=== PATIENT | male | born 1955 | race African-American/Black ===

== ENCOUNTER → 2017-06-29 | Outpatient (CLI) | payer OTHER ==
[~2017-06-29] MED LIST: IOHEXOL 180 MG/ML 10 ML VIAL. ONE; methylPREDNISolone ACETATE 40 MG/ML VIAL. ONE; methylPREDNISolone ACETATE 80 MG/ML VIAL. ONE
--- NOTE | 2017-06-29 23:34 | PAIN ---
DATE OF SERVICE: 06/29/2017 INITIAL CONSULTATION FOR PAIN CLINIC CHIEF COMPLAINT: Low back pain with left greater than right lower extremity pain. HISTORY OF PRESENT ILLNESS: This is a 61-year-old male who presents with history of pain in the low back, bilateral lower extremities, left greater than right for about 2-3 years. The patient reports this started in 1977 when he had an injury doing some Olympic games dislocated left knee cap with high jumping and had pain in the back at the same time. The patient reports he did fairly well after that with pain over the years but over the past 2-3 years, it has been much worse, low back radiating to the left lower extremity and also in the lateral aspect of the gluteus, posterior gluteus, posterior thigh, lateral thigh, medial thigh and medial lower leg with numbness and the inside of the lower leg to the ankle on the left side along with some pain across the low back and the right lateral hip and gluteus on the right side. The patient reports it is better with heat, with sitting or changing positions; waking him from sleep about twice a night; however, he is usually better with lying down and when he lays on his left side, it does awaken him from sleep. The patient reports the pain is constant, sharp, stabbing, throbbing, shooting and has numbness and radiation, aching and burning qualities into the lower extremities again, worse on the left side. The patient reports it does not affect his bowel or bladder control, does affect his ability to walk and he uses a brace or a cane, which he has with him today most times. The patient has had epidural injections in the past at an outside facility as well as physical therapies in the past and is currently doing some stretching exercises on his own. No formal physical therapy within the last 6 months. The patient reports a disability rate from 0-10, 10 being the worst, is a 5 with family and home responsibilities and social activity and self care, 7 with recreation and sexual behavior, 8 with occupation and 5 with self care and 0 with life support activities. The patient reports no loss of motor function, but significant fatigability into the left lower extremity with activity, walking more than about 10-15 minutes. If he stops to rest, this gets better and he can reset the process and go on again. PAST MEDICAL HISTORY: Significant for hypertension, bronchitis, asthma, glaucoma, thrombocytopenia, arthritis, depression, anxiety and osteoarthritis. PAST SURGICAL HISTORY: Previous surgeries include a left knee scope. CURRENT MEDICATIONS: Include daily baby aspirin, Zyrtec, ibuprofen, methocarbamol, amlodipine, Klor-Con, Flovent, alprazolam and gabapentin. ALLERGIES: The patient is allergic to PENICILLIN. FAMILY HISTORY: Significant for no major medical conditions or issues that he is aware of. SOCIAL HISTORY: The patient drinks about a pint of alcohol a week and drinks it throughout the week. Also, smokes marijuana once a week on average as well and smokes cigarettes for 20+ years, nonmenthol. 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 REVIEW OF SYSTEMS: The patient's review of systems is positive for those items mentioned in history of present illness. All systems reviewed and otherwise negative. It is complete, full and well documented on the patient's chart. PHYSICAL EXAMINATION: VITAL SIGNS: Today the patient's blood pressure is 122/82, pulse 71, respirations 16, temperature is 98.3 degrees Fahrenheit, height is 5 feet 9 inches and weight 163 pounds. GENERAL: The patient is awake, alert, oriented, appropriate and very pleasant demeanor. HEENT: Head shows normocephalic and atraumatic. Extraocular movements are intact, symmetrical. Oral cavity: Mucous membranes moist and pink. Dentition is intact. NECK: Shows anterior throat supple without palpable lymphadenopathy noted. Swallow reflex symmetrical. CHEST: Shows normal with inspection. Breath sounds are clear to auscultation bilaterally. HEART: Shows S1 and S2 clear. No murmurs auscultated. ABDOMEN: Soft, nontender and nondistended. No palpable organomegaly is noted. No rebound or guarding demonstrated. BACK: Shows spine grossly in the midline. No previous bruises, lesions, rashes or scars are noted. Normal appearing cervical lordotic curvature, thoracic kyphotic curvature and lumbar lordotic curvature. The patient's skin shows warm and dry, good turgor. No edema and no rashes, bruises or scars. Lumbar paraspinous muscle shows symmetry on inspection. With palpation shows some moderate tenderness along the lower lumbar distribution, slightly more on the left than the right but only slightly. The patient shows good rotational motion of lumbar spine, both laterally as well as extension and flexion without difficulty. No tenderness over the sacrum, sacroiliac regions over the spinous processes with palpation. LOWER EXTREMITIES: Show deep tendon reflexes at 2+ in the patellar, 1+ tendo-calcaneal tendons. Motor exam is strong with 5/5 dorsiflexion, extension, quadriceps and hamstring flexion equal and symmetrical. Peripheral pulses are 1+ posterior tibial and dorsalis pedis pulses with no peripheral edema is noted. No clubbing and no cyanosis. Straight leg raising noted to be positive on the left at about 40-45 degrees. Right side is negative. Gaenslen's and Lukas's maneuvers are negative bilaterally. The patient is able to stand, stand on his toes without significant difficulty or loss of balance, walks with a normal-appearing gait, does not appear to favor the right or left lower extremity, does have a cane with him, however, which he is using in his right hand. IMPRESSION: 1. This is a 61-year-old male with a 2-3 year history of increasing pain, low back, bilateral lower extremities, worse on the left than the right in a radicular fashion. 2. MRI scan of lumbar spine showing advanced degenerative disk disease, degenerative facet arthrosis at L4-L5 resulting in bilateral neural foraminal stenosis and nerve root impingement. 3. History of arthritis. 4. Hypertension. PLAN: Options were discussed with the patient including conservative medical management, physical therapy, interventional techniques and he would like to pursue interventional techniques. We discussed a lumbar epidural steroid injection using description as well as anatomic models to describe the procedure. Risks were then discussed including, but limited to bleeding, infection, possibility of epidural hematoma and subsequent neurological compromise, dural puncture, headaches, spinal cord and/or nerve damage, side effects of steroid medication and poor results regarding pain control. The patient understands and wished to proceed. The patient to return to clinic in approximately 2 weeks for followup, was counseled to return appointment, activity level and side effects to be aware of. DIAGNOSIS: Lumbar radiculopathy with lumbar spinal stenosis and lumbar degenerative disk disease. PROCEDURE: Lumbar epidural steroid injection in translaminar approach at the L4-L5 level using C-arm fluoroscopic guidance under sterile prep and drape using local anesthetic. MEDICATION INJECTED: A total of 120 mg Depo-Medrol plus 10 mL of preservative-free normal saline and 2 mL of Isovue for contrast. CONDITION AT DISCHARGE: Stable. The patient tolerated procedure well, had no complications. AMEE ARGUETA MD DR: VELMA/anna JOB#: [id number] / [id number]
== END | disposition home or self-care (01) ==
LOC: PNCL 08:37
PROVIDERS: ATTEND Anesthesiology
DX: M51.16 Intervertebral disc disorders with radiculopathy, lumbar region (principal); M48.061 Spinal stenosis, lumbar region without neurogenic claudication; I10 Essential (primary) hypertension; M19.90 Unspecified osteoarthritis, unspecified site; H40.9 Unspecified glaucoma; F41.9 Anxiety disorder, unspecified; F32.9 Major depressive disorder, single episode, unspecified; Z88.0 Allergy status to penicillin
CPT/HCPCS: 62323; J1030; J1040

== ENCOUNTER → 2020-06-08 | Outpatient (CLI) | payer OTHER ==
[~2020-06-08] MED LIST changes: +ALPR0.5T6 PO; +AMLO-187 PO; +ASPI-630 PO; +GABA600T7 PO; +HYDR-2761 PO; +IBUP-1060 PO; -IOHEXOL 180 MG/ML 10 ML VIAL. ONE; +LORA10TA68 PO; +MULT-121 PO; -methylPREDNISolone ACETATE 40 MG/ML VIAL. ONE; -methylPREDNISolone ACETATE 80 MG/ML VIAL. ONE
[2020-06-08 09:31] LABS: BASO % 1 % (0-3); EOS # 0.1 x10^3/uL (0.0-0.7); EOS % 2 % (0-3); HEMATOCRIT 41.6 % (39.0-53.0); HEMOGLOBIN 14.1 g/dL (13.0-17.5); LYMPH # 2.1 x10^3/uL (1.0-4.8); LYMPH % 31 % (24-48); MEAN CORPUSCULAR HEMOGLOBIN 31 pg (25-35); MEAN CORPUSCULAR HGB CONC 34 g/dL (31-37); MEAN CORPUSCULAR VOLUME 92 fL (79-100); MONO # 0.5 x10^3/uL (0.0-1.1); MONO % 7 % (0-9); NEUT # 4.2 x10^3/uL (1.8-7.7); NEUT % 60 % (31-73); PLATELET COUNT 165 x10^3/uL (140-400); RED BLOOD COUNT 4.51 x10^6/uL (4.30-5.70); RED CELL DISTRIBUTION WIDTH 13.9 % (11.5-14.5); WHITE BLOOD COUNT 6.9 x10^3/uL (4.0-11.0)
[2020-06-08 09:42] LABS: PROTHROMBIN TIME PATIENT 12.7 SEC (11.7-14.0)
[2020-06-08 09:53] LABS: ALBUMIN 3.7 g/dL (3.4-5.0); C-REACTIVE PROTEIN 2.6 mg/L (0-3.3); CALCIUM 8.8 mg/dL (8.5-10.1); POTASSIUM 3.6 mmol/L (3.5-5.1)
[2020-06-09 00:10] LABS: HEMOGLOBIN A1C 5.5 % (4.8-5.6)
== END ==
LOC: SURGPAT 12:41
PROVIDERS: ATTEND Orthopaedic Surgery
DX: Z01.812 Encounter for preprocedural laboratory examination (principal); M16.0 Bilateral primary osteoarthritis of hip; Z96.612 Presence of left artificial shoulder joint
CPT/HCPCS: 36415; 80048; 82040; 82306; 83036; 85025; 85610; 85730; 86140; 87641

== ENCOUNTER → 2020-06-12 | Outpatient (CLI) | payer OTHER ==
[2020-06-11 12:33] VITALS: BP 115/81
== END ==
LOC: LAB 13:31
PROVIDERS: ATTEND Orthopaedic Surgery
DX: Z01.812 Encounter for preprocedural laboratory examination (principal); Z20.828 Contact with and (suspected) exposure to other viral communicable diseases
CPT/HCPCS: U0003

== ENCOUNTER 2020-06-16 08:46 | Inpatient (IN) | payer OTHER ==
[~2020-06-16] VITALS: Ht 175.3 cm; Wt 71.7 kg
[2020-06-16] VITALS (11 sets, daily range): BP systolic 105–143; BP diastolic 60–83
[~2020-06-16 08:46] MED LIST changes: +ACETAMINOPHEN 500 MG TABLET PO PRN; +GABAPENTIN 300 MG CAPSULE. PO PRN; +MELOXICAM 7.5 MG TABLET PO PRN; +MORPHINE SULFATE 5 MG, KETOROLAC 30MG VIAL 30 MG, ROPIVacaine 0.5% PF 60 ML, EPINEPHrin... INT ART ONE; +TRANEXAMIC ACID 1,000 MG in IV NS 50ML -- 1ST BAG INJ ONE; +TRANEXAMIC ACID 1,000 MG in IV NS 50ML -- 2ND BAG INJ ONE; +ceFAZolin SODIUM IV Push 1 GM VIAL. IVP PRN
[2020-06-16] MEDS ORDERED: PROPOFOL 10 MG/ML (20ML) VIAL. IV ONE (09:46)
[2020-06-16] MEDS ORDERED: LIDOCAINE 2% PF 5 ML VIAL. ONE (09:46)
[2020-06-16] MEDS ORDERED: ROCURONIUM 50 MG/5 ML VIAL. ONE (09:46)
[2020-06-16] MEDS ORDERED: fentaNYL PF VIAL 100 MCG/2 ML VIAL ONE ×2 (09:47→16:32)
[2020-06-16] MEDS: IV RINGERS,LACTATED 1000ML 1,000 ML IV SCH ×2 (09:50→23:20)
[2020-06-16 10:09] LABS: PROTHROMBIN TIME PATIENT 12.4 SEC (11.7-14.0)
[2020-06-16] MEDS ORDERED: IV RINGERS,LACTATED 1000ML 1,000 ML IV SCH (10:45)
[2020-06-16] MEDS ORDERED: MORPHINE SULFATE 2 MG/ML VIAL. IV PRN (10:45)
[2020-06-16] MEDS ORDERED: fentaNYL PF VIAL 100 MCG/2 ML VIAL IV PRN (10:45)
[2020-06-16] MEDS ORDERED: HYDROmorphone 2 MG/ML VIAL IV PRN (10:45)
[2020-06-16] MEDS ORDERED: LIDOCAINE 1% PF 2 ML VIAL. ID PRN (10:45)
[2020-06-16] MEDS ORDERED: PROCHLORPERAZINE 10 MG/2 ML VIAL. IV PRN (10:45)
[2020-06-16] MEDS ORDERED: ONDANSETRON PF 4 MG/2 ML VIAL. IV PRN (10:45)
--- NOTE | 2020-06-16 12:15 | HP ---
ADMIT DATE: 06/16/2020 PREOPERATIVE HISTORY AND PHYSICAL CHIEF COMPLAINT: Bilateral hip pain, left worse than right. HISTORY OF PRESENT ILLNESS: The patient has had severe worsening bilateral hip pain for several years with previous injections and nonoperative treatment provided only partial incomplete relief, which has been inadequate as his pain has gotten worse and worse with ambulation and transfers. He has recently been walking with a walker because of the severe pain. PAST MEDICAL HISTORY: Hypertension, joint pain and neuropathy. PAST SURGICAL HISTORY: Surgical history of his left knee back in 1977. Apparently a ligament reconstruction for a dislocated knee. FAMILY HISTORY: Mom is alive. Father is . SOCIAL HISTORY: He was a previous smoker, states that he has quit recently after a 32-year history of smoking. He has about 1 beer nightly as far as alcohol. He is retired from the . Denies any drug use. 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 MEDICATIONS: List is reviewed. ALLERGIES: He has no known drug allergies. REVIEW OF SYSTEMS: Negative for any recent febrile illness, chest pain, shortness of breath or other constitutional symptoms. PHYSICAL EXAMINATION: GENERAL: Height is 5 feet 9 inches, weight 159 pounds, BMI 23.48. VITAL SIGNS: Per admission sheet. HEENT: Atraumatic, normocephalic. HEART: Regular rate and rhythm. LUNGS: Clear to auscultation bilaterally. ABDOMEN: Benign. EXTREMITIES: Examination of both hips reveals decreased range of motion, but extreme pain on the left hip, more so than the right with any extremes of his already limited range of motion that are attempted. He has normal motion of bilateral knees and ankles with intact motor function, distal pulses, sensation, reflexes, skin in both lower extremities throughout. IMAGING: X-rays show severe osteoarthritis of both hips with loss of joint space bilaterally, left is worse than the right. ASSESSMENT: Primary osteoarthritis of both hips, left hip pain worse than right. TREATMENT PLAN: I had previously discussed with him risks, benefits, postoperative course of total hip arthroplasty including the possibility of infection, nerve or blood vessel damage, premature wear or loosening, instability, medical or other anesthetic complications and among others. All his questions were answered. He wishes to proceed with surgical evaluation and treatment, which will include [facility] observation to follow. REBEKA GU MD DR: ALEXANDRA/anna JOB#: [id number] / [id number]
[2020-06-16] MEDS ORDERED: DESFLURANE 61 TO 120 MINUTES IH ONE (14:15)
[2020-06-16] MEDS ORDERED: DEXAMETHASONE SOD PHOS 4 MG/ML VIAL ONE (14:15)
[2020-06-16] MEDS ORDERED: VANCOMYCIN 1 GM VIAL. CEMENT ONE (14:15)
[2020-06-16] MEDS ORDERED: ONDANSETRON PF 4 MG/2 ML VIAL. ONE (14:15)
[2020-06-16] MEDS ORDERED: NEOSTIGMINE METHYLSULFATE 5 MG/5 ML SYRINGE. ONE (15:11)
[2020-06-16] MEDS ORDERED: GLYCOPYRROLATE 1 MG/5 ML VIAL. ONE (15:11)
[2020-06-16] MEDS ORDERED: KETOROLAC 30 MG/ML VIAL. ONE (16:26)
[2020-06-16] MEDS ORDERED: MORPHINE SULFATE 2 MG/ML VIAL. ONE (16:32)
[2020-06-16] MEDS ORDERED: PROCHLORPERAZINE 10 MG/2 ML VIAL. ONE (16:32)
[2020-06-16] MEDS ORDERED: 0.9 % SODIUM CHLORIDE 10 ML DISP.SYRIN. IV PRN (16:45)
[2020-06-16] MEDS ORDERED: CALCIUM CARBONATE 500 MG TAB.CHEW PO PRN (16:45)
[2020-06-16] MEDS ORDERED: ZOLPIDEM 5 MG TABLET. PO PRN (16:45)
[2020-06-16] MEDS ORDERED: IV NORMAL SALINE 1000ML BAG 1,000 ML IV SCH (16:45)
[2020-06-16] MEDS ORDERED: PROCHLORPERAZINE 5 MG TABLET. PO PRN (16:45)
[2020-06-16] MEDS ORDERED: DEXTROSE 50% 25 GM / 50ML DISP.SYRIN. IV PRN (16:45)
[2020-06-16] MEDS ORDERED: fentaNYL PF VIAL 100 MCG/2 ML VIAL IVP PRN (16:45)
[2020-06-16] MEDS ORDERED: MORPHINE SULFATE 2 MG/ML VIAL. IVP PRN (16:45)
[2020-06-16] MEDS ORDERED: diphenhydrAMINE 50 MG/ML VIAL IVP PRN (16:45)
[2020-06-16] MEDS: fentaNYL PF VIAL 100 MCG/2 ML VIAL IV PRN ×2 (16:47→16:59)
--- NOTE | 2020-06-16 17:45 | NUR ---
Pharmacy Warfarin Dosing Note S:Pharmacy consulted to assist with anticoagulation therapy started 06/16/20 with target INR: 1.6 - 2.5 O:LILY LANDON is a 64 year old M with [facility] LABS: Last INR: 1.0 Last HGB: Last HCT: Last PLT: Last dose of given on at Previous Regimen: Vitamin K given: N Drug Interaction Changes: Ongoing Drug Interactions: A:INR of 1.0 is below desired range. Target range for this patient is: 1.6 - 2.5 P: Warfarin dose: 5 mg Today at 1800. Bridge Therapy: None Next INR due tomorrow. Pharmacy anticoagulation service will continue to follow. Ti Jacome [facility], 06/16/20 [id number]
--- NOTE | 2020-06-16 17:55 | NUR ---
Arrived to unit by bed from PACU. Alert and oriented x's 4. No c/o at this time. Left anterior hip dressing is d/i with ice pack. IVF's intact and infusing. VS stable. Oriented room and control. Side rails up x's 2 with call light in reach. Dinner tray ordered. Cont. monitor.
[2020-06-16] MEDS ORDERED: WARFARIN 5 MG TABLET. PO ONE (18:00)
[2020-06-16] MEDS: FERROUS SULFATE 325 MG TABLET. PO SCH (19:52)
[2020-06-16] MEDS: oxyCODONE IR 5 MG TABLET PO PRN (19:52)
[2020-06-16] MEDS: ONDANSETRON PF 4 MG/2 ML VIAL. IVP SCH ×2 (19:52→23:39)
[2020-06-16] MEDS: ONDANSETRON ODT 4 MG TAB.RAPDIS. PO SCH ×2 (19:52→23:39)
[2020-06-16] MEDS: ceFAZolin SODIUM IV Push 1 GM VIAL. IVP SCH (19:53)
--- NOTE | 2020-06-16 20:25 | PDOC4 ---
Operative Note Operative Note Date of surgery: 06/16/2020 Preoperative diagnosis: Degenerative joint disease left hip Postoperative diagnosis: Same Operative procedure: Left total hip arthroplasty with anterior approach Surgeon Zane Anesthesia: General Estimated blood loss: 300 cc Complications: None Drains: None Operative indications: Please see my orthopedic clinic note and dictated history and physical for detailed operative indications and note that we covered risks benefits postoperative course of the procedure. All his questions were answered and he wishes to proceed with surgical evaluation and treatment having given informed consent Operative text: Patient was identified procedure verified patient placed in the supine position on the Sanford fracture table after adequate amounts of general anesthesia were administered. All bony prominences were well-padded and left hip was prepped and draped in the standard sterile fashion. After timeout was performed patient procedure identified and verified an incision was made just distal to the anterior superior iliac spine running along the tensor fascia wendy for a distance of about 4 inches. Fascia was incised tensor fascia wendy was taken laterally and circumflex vessels were located and coagulated and the anterior capsule was exposed with the rectus femoris gently retracted medially along with the underlying fascia that was dissected free. Capsule was split in a T-shaped incision and superior aspect of the capsule was excised and further superior release was carried out with the hip in external rotation. Hip was returned to 40 degrees external rotation and a napkin ring cut was made with an Avenir Dagn broach for reference napkin ring was removed and femoral head was removed and sized. Reaming was carried out from a size 49 to a size 55 with a size 56 cluster hole cup placed in proper version and alignment under fluoroscopic guidance and achieved a very solid scratch fit and therefore no screw fixation was applied. A 36 mm standard vitamin E liner was impacted into place. Femur was brought into maximum external rotation extension and adduction and release was carried out at the 11 o'clock position to free up the femur and retractors were placed medially and above the greater trochanter for maximum femoral exposure box osteotome was used along with the rattail rasp and successive size broaching up to a size 5 which provided excellent stability and fit within the canal. Calcar reaming was carried out and trial fitting with a +0 36 mm head to reproduce leg length and offset appropriately. This was verified under fluoroscopic guidance. Trial components were removed and a size 5 standard offset collared Avenir stem was impacted into place with a +0 ceramic 36 mm head. Excellent stability and range of motion were noted and leg length reproduced according to measurements from the contralateral side. Thorough irrigation carried out with dilute Betadine solution and then washed further with normal saline solution and pulse lavage. Intra-articular mixture was injected subperiosteally throughout the joint capsule and subcutaneous areas. Fascia was closed with #1 PDS strata fix suture in a running fashion subcutaneous closure with buried Vicryl skin closure with subcuticular Monocryl and a sam dressing was applied. Patient was returned to recovery room in stable condition having tolerated the procedure well. REBEKA GU MD Jun 16, 2020 20:25
[2020-06-17 03:00] VITALS: BP 109/64
[2020-06-17] MEDS: ceFAZolin SODIUM IV Push 1 GM VIAL. IVP SCH ×2 (03:38→08:37)
[2020-06-17] MEDS: oxyCODONE IR 5 MG TABLET PO PRN ×4 (03:38→20:49)
[2020-06-17] MEDS ORDERED: MAGNESIUM HYDROXIDE 2,400 MG/30 ML ORAL.SUSP. PO PRN (06:00)
[2020-06-17] MEDS: traMADol 50 MG TABLET PO SCH ×4 (06:15→23:21)
[2020-06-17] MEDS: GABAPENTIN 100 MG CAPSULE. PO SCH ×4 (06:15→23:20)
[2020-06-17] MEDS: ONDANSETRON ODT 4 MG TAB.RAPDIS. PO SCH ×2 (06:15→12:00)
[2020-06-17] MEDS: ONDANSETRON PF 4 MG/2 ML VIAL. IVP SCH ×2 (06:15→12:00)
[2020-06-17 06:53] VITALS: BP 117/72
[2020-06-17 08:35] VITALS: BP 114/65
[2020-06-17] MEDS: MULTIVITAMIN with MINERAL TABLET. PO SCH (08:37)
[2020-06-17] MEDS: ACETAMINOPHEN 500 MG TABLET PO SCH ×3 (08:37→20:50)
[2020-06-17] MEDS: SENNOSIDES/DOCUSATE 8.6/50MG TABLET. PO SCH (08:37)
[2020-06-17] MEDS: amLODIPine BESYLATE 10 MG TABLET PO SCH (08:37)
[2020-06-17] MEDS: FERROUS SULFATE 325 MG TABLET. PO SCH ×2 (08:37→16:21)
[2020-06-17] MEDS ORDERED: MULTIVITAMIN PO SCH (09:00)
[2020-06-17 09:15] LABS: PROTHROMBIN TIME PATIENT 14.2 SEC (11.7-14.0)
[2020-06-17 10:59] LABS: HEMATOCRIT 28.4 % (39.0-53.0); HEMOGLOBIN 9.7 g/dL (13.0-17.5)
[2020-06-17] MEDS ORDERED: ONDANSETRON PF 4 MG/2 ML VIAL. IVP PRN (12:00)
[2020-06-17] MEDS ORDERED: ONDANSETRON ODT 4 MG TAB.RAPDIS. PO PRN (12:00)
--- NOTE | 2020-06-17 15:14 | NUR ---
Pharmacy Warfarin Dosing Note S:Pharmacy consulted to assist with anticoagulation therapy started 06/16/20 with target INR: 1.6 - 2.5 O:LILY LANDON is a 64 year old M with [facility] LABS: Last INR: 1.1 Last HGB: 9.7 Last HCT: 28.4 Last PLT: Last dose of 5 mg given on 06/16/20 at 1952 Previous Regimen: Vitamin K given: N Drug Interaction Changes: Ongoing Drug Interactions: A:INR of 1.1 is below desired range. Target range for this patient is: 1.6 - 2.5 P: Warfarin dose: 5 mg Today at 1600 Bridge Therapy: None Next INR due TOMORROW Pharmacy anticoagulation service will continue to follow. MARK [facility], 06/17/20 [id number]
[2020-06-17] MEDS ORDERED: BISACODYL 10 MG SUPP.RECT. PR PRN (16:00)
[2020-06-17] MEDS ORDERED: WARFARIN 5 MG TABLET. PO ONE (16:00)
[2020-06-17 18:49] VITALS: BP 130/63
--- NOTE | 2020-06-17 20:07 | PDOC ---
PROGRESS NOTES Date of Service DATE: 06/17/20 TIME: 20:06 Subjective Subjective Problems overnight: Some soreness in the muscular area of the hip but joint feels better Objective Vital Signs Vital Signs Date Time Temp Pulse Resp B/P (MAP) Pulse Ox O2 Delivery O2 Flow Rate FiO2 06/17/20 18:49 98.2 57 18 130/63 (85) 95 Room Air 98.2 06/16/20 17:14 10 Physical Exam Dressing clean dry intact leg lengths equal distal neurovascular status intact Labs Laboratory Tests Test 06/16/20 09:20 06/17/20 08:20 06/17/20 09:20 Prothrombin Time 12.4 SEC (11.7-14.0) 14.2 SEC (11.7-14.0) Prothromb Time International Ratio 1.0 (0.8-1.1) 1.1 (0.8-1.1) Activated Partial Thromboplast Time 35 SEC (24-38) Hemoglobin 9.7 g/dL (13.0-17.5) Hematocrit 28.4 % (39.0-53.0) Mean Corpuscular Hemoglobin Concent 34 g/dL (31-37) Laboratory Tests Test 06/17/20 08:20 06/17/20 09:20 Prothrombin Time 14.2 SEC (11.7-14.0) Prothromb Time International Ratio 1.1 (0.8-1.1) Hemoglobin 9.7 g/dL (13.0-17.5) Hematocrit 28.4 % (39.0-53.0) Mean Corpuscular Hemoglobin Concent 34 g/dL (31-37) Imaging Intra-Op x-rays show excellent positioning of a total hip arthroplasty Assessment Assessment POD#1 total hip arthroplasty Plan Plan of Care Coumadin anticoagulation, mobilize weightbearing as tolerated with physical therapy Justicifation of Admission Dx: Justifications for Admission: Justification of Admission Dx: N/A REBEKA GU MD Jun 17, 2020 20:07
[2020-06-18] MEDS: ACETAMINOPHEN 500 MG TABLET PO SCH ×4 (03:00→20:26)
[2020-06-18] MEDS: oxyCODONE IR 5 MG TABLET PO PRN (04:55)
[2020-06-18] MEDS: GABAPENTIN 100 MG CAPSULE. PO SCH ×3 (06:12→20:26)
[2020-06-18] MEDS: traMADol 50 MG TABLET PO SCH ×4 (06:13→22:54)
[2020-06-18 06:15] VITALS: BP 121/66
[2020-06-18] MEDS ORDERED: CETIRIZINE HCL 10 MG TABLET. PO PRN (07:15)
[2020-06-18] MEDS: FERROUS SULFATE 325 MG TABLET. PO SCH ×2 (08:04→17:12)
[2020-06-18] MEDS: MULTIVITAMIN with MINERAL TABLET. PO SCH (08:05)
[2020-06-18] MEDS: SENNOSIDES/DOCUSATE 8.6/50MG TABLET. PO SCH (08:05)
--- NOTE | 2020-06-18 08:57 | PDOC ---
PROGRESS NOTES Date of Service DATE: 06/18/20 TIME: 08:56 Subjective Subjective Problems overnight: Left hip is very sore today he thinks after physical therapy and some exercises on his own last evening Objective Vital Signs Vital Signs Date Time Temp Pulse Resp B/P (MAP) Pulse Ox O2 Delivery O2 Flow Rate FiO2 06/18/20 07:16 Room Air 06/18/20 06:15 99.9 80 18 121/66 (84) 93 99.9 06/16/20 17:14 10 Physical Exam Leg lengths equal distal neurovascular status intact he has good stability a lot of soreness over the left hip musculature some swelling and bruising as expected Labs Laboratory Tests Test 06/16/20 09:20 06/17/20 08:20 06/17/20 09:20 Prothrombin Time 12.4 SEC (11.7-14.0) 14.2 SEC (11.7-14.0) Prothromb Time International Ratio 1.0 (0.8-1.1) 1.1 (0.8-1.1) Activated Partial Thromboplast Time 35 SEC (24-38) Hemoglobin 9.7 g/dL (13.0-17.5) Hematocrit 28.4 % (39.0-53.0) Mean Corpuscular Hemoglobin Concent 34 g/dL (31-37) Laboratory Tests Test 06/17/20 09:20 Hemoglobin 9.7 g/dL (13.0-17.5) Hematocrit 28.4 % (39.0-53.0) Mean Corpuscular Hemoglobin Concent 34 g/dL (31-37) Assessment Assessment POD#2 left total hip arthroplasty Plan Plan of Care Continue mobilize with physical therapy, Coumadin anticoagulation Adjust pain medications as necessary Justicifation of Admission Dx: Justifications for Admission: Justification of Admission Dx: Yes (A lot of left hip soreness adjusting medications to relieve) REBEKA GU MD Jun 18, 2020 08:57
[2020-06-18] MEDS: LIDOCAINE (700MG/PATCH) PATCH. TD SCH (10:09)
--- NOTE | 2020-06-18 10:15 | NUR ---
Complaining of left hip pain towards back. Lidoderm patch placed per request. "Don't like to take a lot pain pills. Don't want to get hooked on them." Cont. monitor.
[2020-06-18 11:09] LABS: PROTHROMBIN TIME PATIENT 16.4 SEC (11.7-14.0)
[2020-06-18 11:20] VITALS: BP 99/62
--- NOTE | 2020-06-18 11:48 | NUR ---
Pharmacy Warfarin Dosing Note S: Pharmacy consulted to assist with anticoagulation therapy started 06/16/20 O: LILY LANDON is a 64 year old M with [facility] LABS: Last INR: 1.4 Last HGB: 9.7 Last HCT: 28.4 Last PLT: Last dose of 5 mg given on 06/17/20 at 1621 Vitamin K given: N A:INR of 1.4 is below desired range. Target range for this patient is: 1.6 - 2.5 P: Warfarin dose: 4 mg Today at 1600 Bridge Therapy: None Next INR due tomorrow Pharmacy anticoagulation service will continue to follow. Doreen River RPH, 06/18/20 [id number]
[2020-06-18] MEDS: amLODIPine BESYLATE 10 MG TABLET PO SCH (12:36)
[2020-06-18 13:30] LABS: HEMATOCRIT 29.8 % (39.0-53.0)
--- NOTE | 2020-06-18 14:30 | NUR ---
Stated that the pain is better controlled this afternoon. Encourage to use ice pack and elevated legs while at rest. Cont. monitor.
[2020-06-18] MEDS ORDERED: WARFARIN 4 MG TABLET. PO ONE (16:00)
[2020-06-18 17:57] VITALS: BP 108/62
[2020-06-19] MEDS: ACETAMINOPHEN 500 MG TABLET PO SCH ×3 (03:00→15:00)
[2020-06-19] MEDS: GABAPENTIN 100 MG CAPSULE. PO SCH ×2 (05:39→12:30)
[2020-06-19] MEDS: traMADol 50 MG TABLET PO SCH ×2 (05:39→12:31)
[2020-06-19 06:16] VITALS: BP 138/84
[2020-06-19] MEDS ORDERED: OXYC5CAP PO (07:38)
[2020-06-19] MEDS ORDERED: WARF3TAB50 PO (07:38)
[2020-06-19 07:39] LABS: HEMATOCRIT 26.9 % (39.0-53.0); HEMOGLOBIN 9.3 g/dL (13.0-17.5)
--- NOTE | 2020-06-19 07:40 | SNU/HH DC ---
DISCHARGE WITH HOME HEALTH DISCHARGE INFORMATION: Condition on Discharge: Stable CODE STATUS: Code Status: Full HOME HEALTH: Face to Face: I certify this patient is under my care and that I, or a nurse practitioner or physician's assignment desk assistant working with me, had a face to face encounter that meets the physician face to face encounter requirements with this patient on [06/19/20]. Medical Complications: S/P Joint Replacement Custodial For: Assess/Skilled Observatio RN For Eval/Treatment: Yes Physical Therapy For: Evalulation/Treatment Pt Meets Homebound Status: Limited distance walking POST DISCHARGE ORDERS: Activity Instructions for Disc: Progressive ambulation Weight Bearing Status after Di: As tolerated Bathing Instructions: Shower-keep dressing dry DIET AFTER DISCHARGE: Regular Wound/Incision Care: Ice to area for comfort, Do not change dressing (Call if dressing is saturated, if intact and sealed may shower) FOLLOW-UP: Follow up with: Dr. Degroot 2 weeks postoperatively, call [phone] for follow-up appointment Warfarin Follow UP: Warfarin dosage and testing per [facility] anticoagulation clinic CERTIFICATION STATEMENT: Certification Statement: Certification Statement: Based on the above finding, I certify that this patient is confined to the home and needs intermittent senior living care, physical therapy and/or speech therapy, or continues to need occupational therapy.~ This patient is under my care, and I have initiated the establishment of the plan of care.~ This patient will be followed by myself or a community physician who will periodically review the plan of care. Home Meds Reported Medications Aspirin (ASPIRIN) 81 Mg Tab.chew, 81 MG PO DAILY for blood thinner, TAB.CHEW 06/08/20 Multivitamin (MULTIPLE VITAMINS) 1 Each Tablet, 1 EACH PO DAILY for supplement, TAB 06/08/20 Loratadine (CLARITIN) 10 Mg Tablet, 10 MG PO PRN DAILY PRN for ALLERGIES, TAB 06/08/20 Amlodipine Besylate (AMLODIPINE BESYLATE) 10 Mg Tablet, 10 MG PO DAILY for bp control, TAB 06/08/20 Alprazolam (ALPRAZOLAM) 0.5 Mg Tablet, 0.5 MG PO PRN Q6HRS PRN for ANXIETY / AGITATION, TAB 0 Refills 06/08/20 Ibuprofen (IBUPROFEN) 800 Mg Tablet, 800 MG PO PRN Q6HRS PRN for INFLAMMATION, TAB 06/08/20 Gabapentin (GABAPENTIN) 600 Mg Tablet, 300 MG PO PRN DAILY PRN for PAIN, TAB 06/08/20 Hydrocodone Bit/Acetaminophen (HYDROCODONE-APAP 5-325 ) 1 Tab Tablet, 1 TAB PO PRN Q6HRS PRN for PAIN, TAB 0 Refills 06/08/20 REBEKA DEGROOT MD Jun 19, 2020 07:40
[2020-06-19 07:53] LABS: PROTHROMBIN TIME PATIENT 17.1 SEC (11.7-14.0)
[2020-06-19 08:23] VITALS: BP 118/67
[2020-06-19] MEDS: SENNOSIDES/DOCUSATE 8.6/50MG TABLET. PO SCH (08:25)
[2020-06-19] MEDS: FERROUS SULFATE 325 MG TABLET. PO SCH (08:25)
[2020-06-19] MEDS: oxyCODONE IR 5 MG TABLET PO PRN ×2 (08:25→14:49)
[2020-06-19] MEDS: MULTIVITAMIN with MINERAL TABLET. PO SCH (08:25)
[2020-06-19 08:26] VITALS: BP 118/67
[2020-06-19] MEDS: amLODIPine BESYLATE 10 MG TABLET PO SCH (08:26)
[2020-06-19] MEDS: LIDOCAINE (700MG/PATCH) PATCH. TD SCH (08:27)
[2020-06-19] MEDS ORDERED: WARFARIN 5 MG TABLET. PO ONE (14:00)
--- NOTE | 2020-06-19 15:11 | NUR ---
Discharge instructions given with follow up to Dr. Degroot as scheduled, [facility] scheduled to start 06/20/20 given telephone # to call in case, premedicated for ride home & given todays dose of Coumadin, belongings packed up, see instruction sheet for details, awaiting transportation home
--- NOTE | 2020-06-19 15:58 | NUR ---
Discharged to home per w/c belongings taken with him
--- NOTE | 2020-06-22 19:11 | PATHOLOGY ---
[facility] Accession Number: [id number] . 01 Material submitted: . femur - LEFT FEMORAL HEAD. Modifiers: left . 01 Clinical history: . HIP PAIN LEFT HIP ARTHROPLAST ANTERIOR DEGENERATIVE JOINT DISEASE . 02 Diagnosis: Fragmented femoral head and bone reamings, anterior left hip arthroplasty: - Advanced degenerative arthritis. . (JPM:mm; 06/22/2020) M 06/22/2020 1022 Local . 02 Electronically signed: . Aaron Burgos MD, Pathologist NPI- [id number] . 01 Gross description: . The specimen is received in formalin, labeled "Yosef Sawyer, left femoral head" and consists of a fragmented femoral head and neck with abundant bone reamings measuring 13.0 x 10.0 x 3.5 cm in aggregate. The articular surfaces show extensive eburnation with surrounding leonardo brown roughening. A high school admissions representative section is submitted in A1 following decalcification. (SDY; 06/19/2020) SYU/SYU 06/19/2020 1046 Local . 02 Pathologist provided ICD-10: M16.12 . 02 CPT . 456958, [id number] Specimen Comment: A courtesy copy of this report has been sent to [phone], [phone] Specimen Comment: [id number] Specimen Comment: Report sent to / DR BAR Performed at: 01 [facility] [address], [place] [id number] MD Storm Lynch MD Phone: [phone] Performed at: 02 [facility] [address] [place], [place] [id number] MD Aaron Burgos MD Phone: [phone]
== END 2020-06-19 16:00 | disposition home health service (06) | DRG 470 ==
LOC: SURG 08:46 → 4 SOUTHEST 17:15 → OBSVTOIN 06-18 12:33
PROVIDERS: ADMIT Orthopaedic Surgery; ATTEND Orthopaedic Surgery
PROC: 0SRB03Z Replacement of Left Hip Joint with Ceramic Synthetic Substitute, Open Approach (ICD-10-PCS; principal; 2020-06-16 10:30)
DX: M16.0 Bilateral primary osteoarthritis of hip (principal); I10 Essential (primary) hypertension; G62.9 Polyneuropathy, unspecified; Z87.891 Personal history of nicotine dependence
CPT/HCPCS: 36415; 76000; 85014; 85018; 85610; 85730; 86850; 86900; 86901; C1776; C1887; G0378; G0379; J0171; J0690; J0780; J1100; J1885; J2270; J2405; J2704; J2710; J2795; J3010; J3370; J3490; J7030; J7120; 97116-GP; 97150-GP; 97530-GO; 97530-GP; 97535-GO